=== PATIENT | male | born 1970 | race African-American/Black ===

== ENCOUNTER 2023-05-17 14:38 | Emergency (ER) | payer SELFPAY ==
[2023-05-17 14:45] VITALS: BP 140/79; PULSE 73; RESP 20; TEMP 98.2; BMI 23.4
[2023-05-17 16:14] LABS: BASO % 0.9 % (0-2.0); EOS % 3.8 % (0-4.5); HEMATOCRIT 43.8 % (35.4-49); HEMOGLOBIN 14.5 GM/dL (11.7-16.9); LYMPH % 37.9 % (8-40); MCH 32.8 pg (25.7-33.7); MCHC 33.1 g/dl (32.0-35.9); MEAN PLT VOLUME 6.9 fl (7.5-11.1); MONO % 8.9 % (3.8-10.2); NEUT % 48.5 % (42.8-82.8); PLATELET COUNT 300 10^3/uL (134-434); RBC 4.43 M/mm3 (4.00-5.60); RDW 13.2 % (11.9-15.9); WHITE BLOOD COUNT 4.7 K/mm3 (4.0-10.0)
[2023-05-17 16:20] LABS: URINE APPEARANCE CLEAR; URINE BILIRUBIN NEGATIVE (NEGATIVE); URINE COLOR DK YELLOW; URINE GLUCOSE (UA) NEGATIVE (NEGATIVE); URINE KETONE NEGATIVE (NEGATIVE); URINE LEUK ESTERASE NEGATIVE (NEGATIVE); URINE NITRITE NEGATIVE (NEGATIVE); URINE PROTEIN NEGATIVE (NEGATIVE); URINE UROBILINOGEN 0.2 mg/dL (0.2-1.0)
[2023-05-17 16:33] LABS: POTASSIUM 4.2 mmol/L (3.5-5.1)
[2023-05-17 16:37] LABS: BLOOD UREA NITROGEN 11.1 mg/dL (7-18); CALCIUM 8.7 mg/dL (8.5-10.1)
[2023-05-17 16:39] LABS: CREATININE 1.1 mg/dL (0.55-1.3)
[2023-05-17 16:41] LABS: BILIRUBIN,TOTAL 0.5 mg/dL (0.2-1); TOT PROT 7.4 g/dl (6.4-8.2)
== END 2023-05-17 17:19 | disposition home or self-care (01) ==
LOC: JER 14:38
DX: K92.1 Melena (principal); Z20.822 Contact with and (suspected) exposure to COVID-19
CPT/HCPCS: 0241U-QW; 36415; 80053; 81003; 82272; 85025; 87086; 93005; 93010; 99283-25

== ENCOUNTER 2024-04-14 02:03 | Emergency (ER) | payer SELFPAY ==
[2024-04-14 02:21] VITALS: BP 118/79; PULSE 75; RESP 20; TEMP 97.5; BMI 22.5
[2024-04-14] MEDS ORDERED: ACETAMINOPHEN 500 MG TABLET (FP) ONE (03:30)
[2024-04-14] MEDS: ACETAMINOPHEN 500 MG TABLET (FP) PO ONE (03:32)
== END 2024-04-14 04:17 | disposition home or self-care (01) ==
LOC: JER 02:03
DX: S99.911A Unspecified injury of right ankle, initial encounter (principal); X50.1XXA Overexertion from prolonged static or awkward postures, initial encounter
CPT/HCPCS: 73610-TC-RT-FY; 73630-TC-RT-FY; 99283-25